=== PATIENT | male | born 1975 | race Native Hawaiian/Other Pacific Islander ===

== ENCOUNTER 2019-07-17 18:41 | Emergency (ER) | payer OTHER ==
[~2019-07-17] VITALS: Ht 177.8 cm; Wt 79.4 kg
[2019-07-17 18:57] VITALS: TEMP 97.9
[2019-07-17 21:02] VITALS: BP 132/72
== END 2019-07-17 21:02 | disposition home or self-care (01) ==
LOC: ED 18:41
DX: S43.401A Unspecified sprain of right shoulder joint, initial encounter (principal); X58.XXXA Exposure to other specified factors, initial encounter
CPT/HCPCS: 96372; 99283; J1885